=== PATIENT | female | born 1995 | race American Indian/Alaskan Native ===

== ENCOUNTER 2016-08-18 03:35 | Emergency (ER) | payer SELFPAY ==
[2016-08-18] MEDS ORDERED: TYLENOL ONE (03:56)
[2016-08-18] MEDS ORDERED: TYLENOL PO ONE (03:57)
[2016-08-18 04:16] VITALS: BP 115/74
== END 2016-08-18 04:15 | disposition left against medical advice (07) ==
LOC: ED 03:35
DX: R13.10 Dysphagia, unspecified (principal); Z53.21 Procedure and treatment not carried out due to patient leaving prior to being seen by health care provider